=== PATIENT | female | born 1950 | race Caucasian/White ===

== ENCOUNTER 2019-10-28 17:14 | Emergency (ER) | payer MEDICARE, BC ==
[~2019-10-28] VITALS: Ht 165.1 cm; Wt 92.7 kg
[~2019-10-28 17:14] MED LIST: APIX5TAB3 PO; ATOR40TA PO; ATOR40TA71 PO; CHOL10002 PO; CHOL100046 PO; EMPA25TA PO; FURO-150 PO; METF500T PO; METF500T20 PO; METO-395 PO; METO-539 PO; OXYC-150 PO; PANT-47 PO; PANT40TA4 PO; POTA10TA10 PO; POTA99TA21 PO
[2019-10-28] MEDS ORDERED: albuterol 2.5 MG/3 ML nebule NEB ONE (18:30)
[2019-10-28] MEDS ORDERED: PRED20TA PO (19:04)
[2019-10-28] MEDS ORDERED: AZIT250T83 PO (19:04)
[2019-10-28] MEDS ORDERED: ALBU8.5H8 INH (19:05)
[2019-10-28 19:21] VITALS: BP 101/53
== END 2019-10-28 19:42 | disposition home or self-care (01) ==
LOC: ER 17:15
DX: J18.9 Pneumonia, unspecified organism (principal); R42 Dizziness and giddiness; I48.91 Unspecified atrial fibrillation; Z90.49 Acquired absence of other specified parts of digestive tract; Z87.891 Personal history of nicotine dependence; Z95.5 Presence of coronary angioplasty implant and graft; Z88.8 Allergy status to other drugs, medicaments and biological substances; Z79.01 Long term (current) use of anticoagulants; Z79.899 Other long term (current) drug therapy
CPT/HCPCS: 71045; 94640; 94760; 99283

== ENCOUNTER 2020-03-15 20:27 | Emergency (ER) | payer MEDICARE, BC ==
[~2020-03-15] VITALS: Ht 165.1 cm; Wt 90.0 kg
[~2020-03-15 20:27] MED LIST changes: +ALBU8.5H8 INH; +METF-900 PO; -METF500T20 PO
[2020-03-15] MEDS ORDERED: SYN0.088T PO (20:53)
[2020-03-15] MEDS ORDERED: DULA0.75 (20:53)
[2020-03-15] MEDS ORDERED: ENAL10TA78 PO (20:53)
[2020-03-15 20:58] LABS: BASOPHILS # (AUTO) 0.1 X10'3 (0-0.2); BASOPHILS % (AUTO) 0.9 % (0-1); EOSINOPHILS # (AUTO) 0.1 X10'3 (0-0.9); HEMATOCRIT 42.8 % (35.0-45.0); HEMOGLOBIN 14.2 g/dl (12.0-16.0); LYMPHOCYTES # (AUTO) 1.4 X10'3 (1.1-4.8); LYMPHOCYTES % (AUTO) 19.8 % (21-51); MEAN CORPUSCULAR HEMOGLOBIN 29.9 PG (27.0-31.0); MEAN CORPUSCULAR HGB CONC 33.3 g/dL (33.0-36.5); MEAN CORPUSCULAR VOLUME 89.8 FL (78-98); MEAN PLATELET VOLUME 7.8 FL (7.4-10.4); MONOCYTES # (AUTO) 0.7 X10'3 (0-0.9); MONOCYTES % (AUTO) 9.3 % (2-12); NEUTROPHILS # (AUTO) 4.9 X10'3 (1.8-7.7); PLATELET COUNT 237 X10'3 (140-440); RED BLOOD COUNT 4.76 X10'6 (4.20-5.60); RED CELL DISTRIBUTION WIDTH 13.8 % (11.5-14.5); WHITE BLOOD COUNT 7.1 X10'3 (4.5-11.0)
[2020-03-15 21:12] LABS: ALANINE AMINOTRANSFERASE 30 U/L (12-78); ALBUMIN 3.3 G/DL (3.4-5.0); ALBUMIN/GLOBULIN RATIO 0.9 (1.1-1.5); ALKALINE PHOSPHATASE 78 IU/L (46-116); ANION GAP 10 (8-16); ASPARTATE AMINO TRANSFERASE 23 U/L (10-37); BILIRUBIN,TOTAL 0.5 MG/DL (0.1-1.0); BLOOD UREA NITROGEN 20 MG/DL (7-18); BUN/CREATININE RATIO 16.1 (6.6-38.0); CHLORIDE 102 MMOL/L (99-107); CREATININE 1.24 MG/DL (0.40-0.90); GLUCOSE 255 MG/DL (70-104); POTASSIUM 3.6 MMOL/L (3.5-5.1); SODIUM 138 MMOL/L (135-145); TOTAL CARBON DIOXIDE 26.5 MMOL/L (24-32); TOTAL PROTEIN 7.1 G/DL (6.4-8.2); eGFR 43 ML/MIN
[2020-03-15 22:05] VITALS: BP 107/55
[2020-03-15] MEDS ORDERED: normal saline 1000ML IV soln IVB ONE (22:05)
[2020-03-15] MEDS ORDERED: iohexol 350MG/ML 100ml bottle IV ONE (22:49)
== END 2020-03-16 00:29 | disposition home or self-care (01) ==
LOC: ER 20:28
DX: R07.89 Other chest pain (principal); I48.91 Unspecified atrial fibrillation; I11.0 Hypertensive heart disease with heart failure; I50.9 Heart failure, unspecified; E78.00 Pure hypercholesterolemia, unspecified; E11.9 Type 2 diabetes mellitus without complications; F12.90 Cannabis use, unspecified, uncomplicated; Z90.49 Acquired absence of other specified parts of digestive tract; Z95.5 Presence of coronary angioplasty implant and graft; Z87.01 Personal history of pneumonia (recurrent); Z79.899 Other long term (current) drug therapy; Z88.5 Allergy status to narcotic agent
CPT/HCPCS: 36415; 71045; 71275; 80053; 84484; 85025; 93005; 99285; J7030; Q9967

== ENCOUNTER 2020-04-15 12:21 | Emergency (ER) | payer MEDICARE, BC ==
[~2020-04-15] VITALS: Ht 165.1 cm; Wt 88.6 kg
[~2020-04-15 12:21] MED LIST changes: -ALBU8.5H8 INH; -ATOR40TA PO; -CHOL100046 PO; +DULA0.75; +ENAL10TA78 PO; -METF-900 PO; -METF500T PO; -METO-539 PO; -OXYC-150 PO; -PANT-47 PO; -PANT40TA4 PO; -POTA10TA10 PO; -POTA99TA21 PO; +SYN0.088T PO
[2020-04-15] MEDS ORDERED: HYDROcodone/acetaminophen 10/325mg tab PO ONE (15:50)
[2020-04-15] MEDS ORDERED: HYDR-3965 PO (16:13)
[2020-04-15 16:59] VITALS: BP 114/97
== END 2020-04-15 16:30 | disposition home or self-care (01) ==
LOC: ER 12:22
DX: S22.31XA Fracture of one rib, right side, initial encounter for closed fracture (principal); I48.91 Unspecified atrial fibrillation; I50.9 Heart failure, unspecified; E78.00 Pure hypercholesterolemia, unspecified; I11.0 Hypertensive heart disease with heart failure; E11.9 Type 2 diabetes mellitus without complications; Z90.49 Acquired absence of other specified parts of digestive tract; F12.90 Cannabis use, unspecified, uncomplicated; Z88.8 Allergy status to other drugs, medicaments and biological substances; Z79.01 Long term (current) use of anticoagulants; Z79.899 Other long term (current) drug therapy; X58.XXXA Exposure to other specified factors, initial encounter; Y93.89 Activity, other specified; Y92.89 Other specified places as the place of occurrence of the external cause; Y99.8 Other external cause status
CPT/HCPCS: 71101; 99284

== ENCOUNTER 2020-08-24 11:20 | Emergency (ER) | payer MEDICARE, BC ==
[~2020-08-24] VITALS: Ht 170.2 cm; Wt 80.0 kg
== END 2020-08-24 14:43 | disposition left against medical advice (07) ==
LOC: ER 11:21
DX: R05 Cough (principal); I48.91 Unspecified atrial fibrillation; I11.0 Hypertensive heart disease with heart failure; I50.9 Heart failure, unspecified; E78.00 Pure hypercholesterolemia, unspecified; E11.9 Type 2 diabetes mellitus without complications; F12.90 Cannabis use, unspecified, uncomplicated; Z53.21 Procedure and treatment not carried out due to patient leaving prior to being seen by health care provider; Z87.01 Personal history of pneumonia (recurrent); Z90.49 Acquired absence of other specified parts of digestive tract; Z88.8 Allergy status to other drugs, medicaments and biological substances; Z79.899 Other long term (current) drug therapy

== ENCOUNTER 2021-10-12 17:14 | Emergency (ER) | payer MEDICARE, BC ==
[~2021-10-12] VITALS: Ht 165.1 cm; Wt 98.2 kg
[2021-10-12 18:28] LABS: BASOPHILS % (AUTO) 0.6 % (0-1); EOSINOPHILS # (AUTO) 0.1 X10'3 (0-0.9); EOSINOPHILS % (AUTO) 1.1 % (0-6); HEMATOCRIT 39.2 % (35.0-45.0); HEMOGLOBIN 13.1 g/dl (12.0-16.0); LYMPHOCYTES # (AUTO) 1.3 X10'3 (1.1-4.8); LYMPHOCYTES % (AUTO) 22.1 % (21-51); MEAN CORPUSCULAR HEMOGLOBIN 30.8 PG (27.0-31.0); MEAN CORPUSCULAR HGB CONC 33.5 g/dL (33.0-36.5); MEAN PLATELET VOLUME 8.1 FL (7.4-10.4); MONOCYTES # (AUTO) 0.4 X10'3 (0-0.9); MONOCYTES % (AUTO) 6.8 % (2-12); NEUTROPHILS # (AUTO) 4.1 X10'3 (1.8-7.7); NEUTROPHILS % (AUTO) 69.4 % (42-75); PLATELET COUNT 245 X10'3 (140-440); RED BLOOD COUNT 4.26 X10'6 (4.20-5.60); RED CELL DISTRIBUTION WIDTH 14.4 % (11.5-14.5)
[2021-10-12] MEDS ORDERED: normal saline 1000ml 1,000 ML IV ONE (18:30)
[2021-10-12 18:50] LABS: ALANINE AMINOTRANSFERASE 44 U/L (12-78); ALBUMIN 3.9 G/DL (3.4-5.0); ALBUMIN/GLOBULIN RATIO 1.1 (1.1-1.5); ALKALINE PHOSPHATASE 75 IU/L (46-116); ANION GAP 9 (8-16); ASPARTATE AMINO TRANSFERASE 41 U/L (10-37); BILIRUBIN,TOTAL 0.5 MG/DL (0.1-1.0); BLOOD UREA NITROGEN 22 MG/DL (7-18); BUN/CREATININE RATIO 18.3 (6.6-38.0); CHLORIDE 96 MMOL/L (99-107); GLUCOSE 447 MG/DL (70-104); MAGNESIUM 2.1 MG/DL (1.5-2.4); PHOSPHORUS 2.3 MG/DL (2.3-4.5); POTASSIUM 4.5 MMOL/L (3.5-5.1); SODIUM 133 MMOL/L (135-145); TOTAL CARBON DIOXIDE 28.4 MMOL/L (24-32); TOTAL PROTEIN 7.3 G/DL (6.4-8.2); eGFR 45 ML/MIN
[2021-10-12 19:24] LABS: CLARITY,URINE SLIGHTLY CLOUDY (Clear); COLOR,URINE YELLOW (Yellow); GLUCOSE, URINE >=1000 mg/dl (Neg); KETONES,URINE NEGATIVE (Neg); LEUKOCYTE ESTERASE ,URINE NEGATIVE (Neg); NITRITES, URINE NEGATIVE (Neg); OCCULT BLOOD,URINE SMALL (Neg); PROTEIN,URINE NEGATIVE (Neg); UROBILINOGEN,URINE 0.2 E.U/dL (0.2-1.0)
[2021-10-12 19:27] LABS: UA COLLECTION TYPE CLN CATCH MIDSTREAM
[2021-10-12 19:31] LABS: BACTERIA,URINE 2+ /HPF (Neg); MUCUS STRANDS FEW /LPF (Neg); RBC,URINE 0-2 /HPF (0-2); SQUAMOUS EPITHELIAL CELL,UR FEW /LPF (FEW)
[2021-10-12] MEDS ORDERED: normal saline 1000ML IV soln IV ONE (21:20)
[2021-10-12] MEDS ORDERED: insulin regular, human U-100 3ml vial - multi-dose IV ONE (21:20)
[2021-10-12] MEDS ORDERED: insulin glargine (Lantus) pen - multi-dose SQ ONE (22:05)
[2021-10-12] MEDS ORDERED: LANTUS SQ (22:25)
[2021-10-12 23:07] VITALS: BP 141/80
--- NOTE | 2021-10-16 10:22 | NUR ---
Patient called back and would like RX to be [facility] [place] [facility]. [facility] so I called in a prescription via voicemail. Patient is to be placed on bactrim DS 1 tab PO BID x7 days disp [address] Jacky Lindo
== END 2021-10-13 00:09 | disposition home or self-care (01) ==
LOC: ER 17:15
DX: E11.65 Type 2 diabetes mellitus with hyperglycemia (principal); I48.91 Unspecified atrial fibrillation; I11.0 Hypertensive heart disease with heart failure; I50.9 Heart failure, unspecified; E78.00 Pure hypercholesterolemia, unspecified; F12.90 Cannabis use, unspecified, uncomplicated; Z87.01 Personal history of pneumonia (recurrent); Z90.49 Acquired absence of other specified parts of digestive tract; Z79.4 Long term (current) use of insulin; Z88.8 Allergy status to other drugs, medicaments and biological substances; Z79.899 Other long term (current) drug therapy
CPT/HCPCS: 36415; 80053; 81001; 82948; 83605; 83735; 84100; 84145; 85025; 87040; 87077; 87088; 87186; 93005; 96361; 96374; 99284; J1815; J7030

== ENCOUNTER 2022-01-18 06:05 | Inpatient (IN) | payer MEDICARE, BC ==
[2022-01-12 15:33] LABS: CLARITY,URINE CLEAR (Clear); COLOR,URINE YELLOW (Yellow); GLUCOSE, URINE >=1000 mg/dl (Neg); KETONES,URINE NEGATIVE (Neg); LEUKOCYTE ESTERASE ,URINE NEGATIVE (Neg); NITRITES, URINE POSITIVE (Neg); OCCULT BLOOD,URINE NEGATIVE (Neg); PH,URINE 5.5 (4.8-8.0); PROTEIN,URINE 30 mg/dl (Neg); UROBILINOGEN,URINE 0.2 E.U/dL (0.2-1.0)
[2022-01-12 15:34] LABS: BASOPHILS # (AUTO) 0.1 X10'3 (0-0.2); BASOPHILS % (AUTO) 0.8 % (0-1); EOSINOPHILS # (AUTO) 0.1 X10'3 (0-0.9); EOSINOPHILS % (AUTO) 1.4 % (0-6); LYMPHOCYTES # (AUTO) 1.6 X10'3 (1.1-4.8); LYMPHOCYTES % (AUTO) 22.4 % (21-51); MEAN CORPUSCULAR HEMOGLOBIN 27.9 PG (27.0-31.0); MEAN CORPUSCULAR HGB CONC 33.1 g/dL (33.0-36.5); MEAN CORPUSCULAR VOLUME 84.3 FL (78-98); MEAN PLATELET VOLUME 8.2 FL (7.4-10.4); MONOCYTES # (AUTO) 0.6 X10'3 (0-0.9); MONOCYTES % (AUTO) 8.9 % (2-12); NEUTROPHILS # (AUTO) 4.7 X10'3 (1.8-7.7); NEUTROPHILS % (AUTO) 66.5 % (42-75); PRE OP HEMATOCRIT 40.7 % (35.0-45.0); PRE OP HEMOGLOBIN 13.5 g/dL (12.0-16.0); PRE OP PLATELET COUNT 285 X10'3 (140-440); RED BLOOD COUNT 4.84 X10'6 (4.20-5.60)
[2022-01-12 15:43] LABS: UA COLLECTION TYPE CLN CATCH MIDSTREAM
[2022-01-12 15:46] LABS: BACTERIA,URINE 4+ /HPF (Neg); MUCUS STRANDS NONE SEEN /LPF (Neg); RBC,URINE NONE SEEN /HPF (0-2); SQUAMOUS EPITHELIAL CELL,UR MODERATE /LPF (FEW); WBC CLUMPS,URINE MODERATE /HPF (NEGATIVE)
[2022-01-12 15:53] LABS: HEMOGLOBIN A1C 9.4 % (4.5-6.2)
[2022-01-12 16:00] LABS: ALBUMIN 3.2 G/DL (3.4-5.0); ALBUMIN/GLOBULIN RATIO 0.8 (1.1-1.5); ALKALINE PHOSPHATASE 74 IU/L (46-116); BLOOD UREA NITROGEN 21 MG/DL (7-18); BUN/CREATININE RATIO 25.6 (6.6-38.0); CALCIUM 9.7 MG/DL (8.5-10.1); CHLORIDE 104 MMOL/L (99-107); CREATININE 0.82 MG/DL (0.40-0.90); PRE OP ALT 27 U/L (30-65); PRE OP ANION GAP 9 (8-16); PRE OP AST 22 U/L (10-37); PRE OP BILIRUB, TOTAL 0.4 MG/DL (0.0-1.0); PRE OP POTASSIUM 3.9 MMOL/L (3.4-5.1); PRE OP SODIUM 139 MMOL/L (135-145); TOTAL CARBON DIOXIDE 26.3 MMOL/L (24-32); eGFR 69 ML/MIN
[2022-01-12 16:02] LABS: PRE OP GLUCOSE 218 MG/DL (70-104)
[~2022-01-18] VITALS: Ht 165.1 cm; Wt 106.2 kg
[2022-01-18] VITALS (31 sets, daily range): BP systolic 91–159; BP diastolic 51–88
[~2022-01-18 06:05] MED LIST changes: +DOCUMENT DATE & TIME OF BETA-BLOCKER PO ONE; -DULA0.75; -EMPA25TA PO; -ENAL10TA78 PO; +INSU200I SQ; +LANTUS SQ; +LEVO75TA PO; +MAGN250T29 PO; +POTA-82 PO; +SITA100T11 PO; -SYN0.088T PO; +ceFAZolin inj. 2,000 MG in dextrose 5%-water 100 ML IV ONE; +famotidine 20mg tablet PO ONE
[2022-01-18] MEDS: ringers solution, lacted 1,000 ML IV SCH (07:37)
--- NOTE | 2022-01-18 07:38 | NUR ---
PT LAST DOSE OF METOPROLOL 01/17/22 AT 2100
--- NOTE | 2022-01-18 08:12 | NUR ---
NOTIFIED DR LAO OF BS 220. VERBAL ORDER FOR INSULIN 6 UNITS SQ NOW.
[2022-01-18] MEDS ORDERED: insulin regular, human 10 units/0.1 ml syringe SQ ONE ×3 (08:15→10:20)
[2022-01-18] MEDS ORDERED: insulin regular, human U-100 3ml vial - multi-dose IV ONE ×2 (09:50→10:15)
[2022-01-18] MEDS ORDERED: heparin 10,000 units/1 ML INJ ONE (09:53)
--- NOTE | 2022-01-18 10:00 | NUR ---
RECHECK BS 229. DR LAO AT BS, VERBAL ORDER FOR INSULIN 6 UNITS SQ AND INSULIN 6 UNITS IV. ORDER PLACED
[2022-01-18] MEDS ORDERED: LIDOcaine 1% (10mg/ml) 2ml vial ONE (10:07)
[2022-01-18] MEDS ORDERED: ceFAZolin 1000mg inj ONE (10:14)
[2022-01-18] MEDS ORDERED: sevoflurane 250ml liquid IH ONE (10:26)
--- NOTE | 2022-01-18 10:30 | NUR ---
RECIEVED INSULIN FROM [facility] BOTH DOSES GIVEN JUST PRIOR TO PT TAKEN TO SURG. INSULIN 6 UNITS SQ TO RIGHT ARM, AND INSULIN 6 UNITS IV.
[2022-01-18] MEDS ORDERED: midazolam 1 mg/ML 2ml injection ONE (10:38)
[2022-01-18] MEDS ORDERED: fentaNYL /PF 50mcg/ml 5ml ampule ONE (10:39)
[2022-01-18] MEDS ORDERED: rocuronium 10mg/ml inj IV ONE (11:27)
[2022-01-18] MEDS ORDERED: phenylephrine 10mg/ml inj. ONE (11:27)
[2022-01-18] MEDS ORDERED: LIDOcaine 1%/PF 5ML 10 MG/ML VIAL ONE (11:27)
[2022-01-18] MEDS ORDERED: propofol inj 20 ML IV ONE (11:27)
[2022-01-18] MEDS ORDERED: pneumococcal 23-VAL P-sac vacc 25 mcg/0.5ml vial IMVAC ONE (11:30)
[2022-01-18] MEDS ORDERED: morphine 4 MG/ML inj SYRINge IV PRN (11:55)
[2022-01-18] MEDS ORDERED: acetaminophen 1,000mg/100ml IV 100 ML IV PRN (11:55)
[2022-01-18] MEDS ORDERED: ringers solution, lacted 1,000 ML IV SCH (11:55)
[2022-01-18] MEDS ORDERED: ondansetron/PF 4mg/2ml inj IV PRN (11:55)
[2022-01-18] MEDS ORDERED: labetalol 20mg/4ml (5mg/ml) syringe IV PRN (11:55)
[2022-01-18] MEDS ORDERED: morphine 2 MG/ML inj. syringe IV PRN (11:55)
[2022-01-18] MEDS ORDERED: hydrALAZINE 20mg/ml inj. IV PRN (11:55)
[2022-01-18] MEDS ORDERED: proCHLORperazine 10 MG/2 ml inj IV PRN (11:55)
[2022-01-18] MEDS ORDERED: HYDROmorphone/PF 0.2 MG/ML SYRINGE IV PRN ×2 (11:55)
[2022-01-18] MEDS ORDERED: heparin 1,000unit/ml 10ml vial 10 ML ONE (12:14)
[2022-01-18] MEDS ORDERED: ondansetron/PF 4mg/2ml inj ONE (13:02)
[2022-01-18] MEDS ORDERED: dexamethasone sod phosphate 4mg/ml inj. ONE (13:02)
[2022-01-18] MEDS ORDERED: neostigmine methylsulfate 1 MG/ML 10ml vial ONE (13:08)
[2022-01-18] MEDS ORDERED: glycopyrrolate 0.2mg/ml inj ONE (13:08)
--- NOTE | 2022-01-18 13:31 | NUR ---
Received from OR via bed, accompanied by Anesthesiologist Darci and report given by Anesthesiolgist. pt with snoring respiration, chin tilted back with good results. [address] bilateral groins, bilateral pulses present palpable and marked.
[2022-01-18] MEDS ORDERED: MESSAGE TO PHARMACY PO ONE (15:20)
--- NOTE | 2022-01-18 15:50 | NUR ---
CALLED TO NURSING MANAGER GALLERY, NO BED ASSIGNMENT YET
--- NOTE | 2022-01-18 16:34 | NUR ---
PT HAS PASSED RECOVERY STAGE, NOW AWAITING BED PLACEMENT
--- NOTE | 2022-01-18 17:17 | NUR ---
REPORT CALLED SITA TOUSSAINT, LEFT RADIAL ARTERIAL LINE REMOVED WITHOUT HEMATOMA, PT PREPARED FOR TRANSPORT. SIGNIFICANT OTHER WAS NOT IN THE WAITING ROOM UPON TRANSPORT, PT CALLED HIM ON THE PHONE AND NOTIFIED HIM OF HER ROOM NUMBER
--- NOTE | 2022-01-18 18:05 | NUR ---
Patient in room PCU 3024. I have received report from Kevin and had the opportunity to ask questions and assume patient care.
--- NOTE | 2022-01-18 18:15 | NUR ---
Called Dr. Wolfe and received CC diet order and throat lozenge order for patient.
[2022-01-18] MEDS ORDERED: benzocaine/menthol oral lozeng 1 EACH BOX MM PRN (18:45)
[2022-01-18] MEDS ORDERED: insulin glargine (Lantus) pen - multi-dose SQ SCH (21:00)
[2022-01-18] MEDS ORDERED: INSULIN LISPRO 8 UNIT SQ SCH (21:00)
[2022-01-18] MEDS: insulin Lispro (HumaLOG) vial - multi-dose SQ SCH (21:30)
[2022-01-19] VITALS (7 sets, daily range): BP systolic 99–134; BP diastolic 45–64
[2022-01-19] MEDS: HYDROmorphone inj. 0.5 MG/0.5 ML DISP.SYRIN IV PRN ×5 (01:03→19:36)
--- NOTE | 2022-01-19 06:15 | NUR ---
Problems reprioritized. Patient report given, questions answered & plan of care reviewed with Pepper.
[2022-01-19] MEDS: insulin Lispro (HumaLOG) vial - multi-dose SQ SCH ×3 (09:34→21:48)
[2022-01-19] MEDS: cholecalciferol (vitamin D3) 1,000 unit (25mcg) tablet PO SCH (09:35)
[2022-01-19] MEDS: furosemide 20MG tablet PO SCH (09:35)
[2022-01-19] MEDS: levoTHYROXINE 75mcg tablet PO SCH (09:36)
[2022-01-19] MEDS: linagliptin 5mg tablet PO SCH (09:37)
[2022-01-19] MEDS: atorvastatin 20mg tablet PO SCH (09:38)
[2022-01-19] MEDS: metoprolol succinate 25mg (24-HOUR) SR. Tablet PO SCH (09:39)
[2022-01-19] MEDS: potassium chloride 10mEq ER tablet PO SCH (09:39)
[2022-01-19] MEDS: magnesium oxide 400mg tablet PO SCH (09:40)
[2022-01-19] MEDS: ringers solution, lacted 1,000 ML IV SCH (09:41)
[2022-01-19] MEDS ORDERED: pneumococcal 23-VAL P-sac vacc 25 mcg/0.5ml vial IMVAC ONE (11:30)
--- NOTE | 2022-01-19 13:21 | NUR ---
Noted pt with T2DM, current A1c 9.4%. Pt seen at bedside with roommate present for written and verbal DM education. Pt states her A1c was 14% a few months ago with BG levels in the 500s which is recently down to the 200s after starting insulin, however reports frustration stating she doesn't feel like she's getting good guidance for DM management by her current home physician and is hoping to see an liability analyst. RD validated feelings and discussed the improvement in her DM management based on reported improved A1c and BG levels. Recommend consult with SW for referrals. RD discussed appropriate CHO and food intake as patient states she previously was following a very restrictive diet that eliminated carbs and was roughly around 900 kcal/day. All of patient's questions were answered at this time. RD contact information provided and pt encouraged to reach out if needed. Pt states she dislikes the food though is documented with 75-100% PO intake of meals. Food preferences were obtained and d/w dietary, see below. Pt denies food allergies and states difficulty swallowing breakfast meat this morning. Pt declines BSS with ST though is agreeable extra gravy on meat BIDLD and requests no breakfast meat, d/w dietary. No documented BM in EMR though pt reports LBM 01/18. Will continue to follow. Recommendations: 1) Continue CHO controlled diet 2) [place] food preferences: Yogurt with fruit WB; peanut butter BIDBL; ice cream, iced tea x2, and salad x2 BIDLD; extra gravy on meat; no correia 3) Routine bowel care 4) Weekly scaled weights Addendum: 01/19/22 at [address] Amended: Links added.
[2022-01-19] MEDS ORDERED: glucagon, human recombinant 1mg kit SUBCUT PRN (15:00)
[2022-01-19] MEDS ORDERED: MESSAGE TO PHARMACY PO ONE (15:00)
[2022-01-19] MEDS ORDERED: insulin Lispro (HumaLOG) vial - multi-dose SQ SCH (15:00)
[2022-01-19] MEDS ORDERED: dextrose 50%-water 50ml dispensing syringe IV PRN ×2 (15:00)
[2022-01-19] MEDS ORDERED: DEXTROSE 15 GM of carb/4 tabs (each vial/BOTTLE has 4 tablets) PO PRN ×2 (15:00)
--- NOTE | 2022-01-19 18:41 | NUR ---
Patient in room PCU 3024. I have received report from TONI TOUSSAINT and had the opportunity to ask questions and assume patient care.
[2022-01-19] MEDS: apixaban 5mg tablet PO SCH (19:35)
[2022-01-19] MEDS ORDERED: insulin glargine (Lantus) pen - multi-dose SQ SCH ×3 (21:00)
[2022-01-20] MEDS: HYDROmorphone inj. 0.5 MG/0.5 ML DISP.SYRIN IV PRN ×3 (00:03→09:29)
[2022-01-20 02:00] VITALS: BP 115/62
[2022-01-20 06:00] VITALS: BP 117/67
--- NOTE | 2022-01-20 06:44 | NUR ---
Problems reprioritized. Patient report given, questions answered & plan of care reviewed with MARIANNE TOUSSAINT.
--- NOTE | 2022-01-20 06:45 | NUR ---
Patient in room PCU 3024. I have received report from Liz TOUSSAINT and had the opportunity to ask questions and assume patient care.
[2022-01-20] MEDS: potassium chloride 10mEq ER tablet PO SCH (07:54)
[2022-01-20] MEDS: atorvastatin 20mg tablet PO SCH (07:54)
[2022-01-20] MEDS: cholecalciferol (vitamin D3) 1,000 unit (25mcg) tablet PO SCH (07:54)
[2022-01-20] MEDS: linagliptin 5mg tablet PO SCH (07:55)
[2022-01-20] MEDS: magnesium oxide 400mg tablet PO SCH (07:55)
[2022-01-20] MEDS: furosemide 20MG tablet PO SCH (07:55)
[2022-01-20] MEDS: levoTHYROXINE 75mcg tablet PO SCH (07:55)
[2022-01-20] MEDS: metoprolol succinate 25mg (24-HOUR) SR. Tablet PO SCH (07:55)
[2022-01-20] MEDS: apixaban 5mg tablet PO SCH (07:56)
[2022-01-20] MEDS: insulin Lispro (HumaLOG) vial - multi-dose SQ SCH ×2 (09:24→13:00)
[2022-01-20] MEDS ORDERED: ciprofloxacin 250mg tablet PO ONE (10:25)
[2022-01-20 11:00] VITALS: BP 125/87
[2022-01-20] MEDS ORDERED: LANTUS SQ (11:21)
[2022-01-20] MEDS ORDERED: CIPR-202 PO (11:21)
--- NOTE | 2022-01-30 09:49 | NUR ---
Case Management DC follow up:Spoke with Patient via telephone.S/P: Patient reports:.Denies Acute/continuous chest pain, emergent SOB, syncope episodes, severe headache,blurry vision,signs or symptoms,of stroke/BE FAST,unexplained bruising,bleeding, fever,chills.Verbalizes dressing on left groin has some drainage; [facility] health Nurse has been out to change dressing.Verbalizes understanding of s/s that warrant 9-11/ER visit further evaluation.Verbalizes understanding of new Rx:,why prescribed; continues/resumes current Rx as ordered.Verbalizes compliance with aftercare.Verbalizes she has scheduled appointments with Dr. Wolfe 01/31/22, and with Estela MOLINA 02/06/22. Verbalizes the staff did a good job, no complaint.Needs met,questions/concerns addressed at DC. No further questions/concerns regarding recent hospital stay, and/or DC status at this time.
== END 2022-01-20 14:16 | disposition home health service (06) | DRG 253 ==
LOC: PAS IN 06:05 → PCU 3S 17:32
PROVIDERS: ADMIT Surgery; ATTEND Surgery
PROC: 041L0JH Bypass Left Femoral Artery to Right Femoral Artery with Synthetic Substitute, Open Approach (ICD-10-PCS; principal; 2022-01-18 10:26)
PROC: 3E0234Z Introduction of Serum, Toxoid and Vaccine into Muscle, Percutaneous Approach (ICD-10-PCS; 2022-01-19)
DX: E11.51 Type 2 diabetes mellitus with diabetic peripheral angiopathy without gangrene (principal); N39.0 Urinary tract infection, site not specified; I13.0 Hypertensive heart and chronic kidney disease with heart failure and stage 1 through stage 4 chronic kidney disease, or unspecified chronic kidney disease; I48.91 Unspecified atrial fibrillation; E11.22 Type 2 diabetes mellitus with diabetic chronic kidney disease; N18.30 Chronic kidney disease, stage 3 unspecified; E03.9 Hypothyroidism, unspecified; E11.65 Type 2 diabetes mellitus with hyperglycemia; E78.5 Hyperlipidemia, unspecified; B96.20 Unspecified Escherichia coli [E. coli] as the cause of diseases classified elsewhere; G47.10 Hypersomnia, unspecified; M19.90 Unspecified osteoarthritis, unspecified site; J44.9 Chronic obstructive pulmonary disease, unspecified; I35.9 Nonrheumatic aortic valve disorder, unspecified; I50.9 Heart failure, unspecified; I99.8 Other disorder of circulatory system; Z79.01 Long term (current) use of anticoagulants; Z79.4 Long term (current) use of insulin; Z87.891 Personal history of nicotine dependence; Z90.710 Acquired absence of both cervix and uterus; Z23 Encounter for immunization; Z90.49 Acquired absence of other specified parts of digestive tract; Z88.5 Allergy status to narcotic agent; Z79.899 Other long term (current) drug therapy
CPT/HCPCS: 36415; 80053; 81001; 82948; 83036; 84443; 85025; 86885; 86900; 86901; 87077; 87081; 87088; 87186; 90732; 97116; 97161; 97530; A4618; A7000; C1758; C1768; G0378; J0690; J1100; J1170; J1644; J1815; J2250; J2370; J2405; J2704; J2710; J3010; J3490; J7040; J7060; J7120

== ENCOUNTER 2024-02-28 09:31 | Emergency (ER) | payer MEDICARE, BC ==
[~2024-02-28] VITALS: Ht 165.1 cm; Wt 95.2 kg
[~2024-02-28 09:31] MED LIST changes: -DOCUMENT DATE & TIME OF BETA-BLOCKER PO ONE; +POTA-366 PO; -POTA-82 PO; -ceFAZolin inj. 2,000 MG in dextrose 5%-water 100 ML IV ONE; -famotidine 20mg tablet PO ONE
[2024-02-28 10:09] LABS: BASOPHILS % (AUTO) 0.6 % (0-1); EOSINOPHILS # (AUTO) 0.1 X10'3 (0-0.9); EOSINOPHILS % (AUTO) 1.8 % (0-6); HEMATOCRIT 41.6 % (35.0-45.0); HEMOGLOBIN 13.9 g/dl (12.0-16.0); LYMPHOCYTES # (AUTO) 1.4 X10'3 (1.1-4.8); LYMPHOCYTES % (AUTO) 18.4 % (21-51); MEAN CORPUSCULAR HEMOGLOBIN 28.9 PG (27.0-31.0); MEAN CORPUSCULAR HGB CONC 33.4 g/dL (33.0-36.5); MEAN CORPUSCULAR VOLUME 86.3 FL (78-98); MEAN PLATELET VOLUME 7.4 FL (7.4-10.4); MONOCYTES # (AUTO) 0.7 X10'3 (0-0.9); MONOCYTES % (AUTO) 9.3 % (2-12); NEUTROPHILS # (AUTO) 5.4 X10'3 (1.8-7.7); NEUTROPHILS % (AUTO) 69.9 % (42-75); PLATELET COUNT 250 X10'3 (140-440); RED BLOOD COUNT 4.81 X10'6 (4.20-5.60); RED CELL DISTRIBUTION WIDTH 15.9 % (11.5-14.5); WHITE BLOOD COUNT 7.7 X10'3 (4.5-11.0)
[2024-02-28 10:18] LABS: ALANINE AMINOTRANSFERASE 32 U/L (12-78); ALBUMIN 3.2 G/DL (3.4-5.0); ALBUMIN/GLOBULIN RATIO 0.8 (1.1-1.5); ALKALINE PHOSPHATASE 94 IU/L (46-116); ANION GAP 7 (8-16); ASPARTATE AMINO TRANSFERASE 30 U/L (10-37); BILIRUBIN,TOTAL 0.7 MG/DL (0.1-1.0); BLOOD UREA NITROGEN 24 MG/DL (7-18); CALCIUM 9.7 MG/DL (8.5-10.1); CHLORIDE 106 MMOL/L (99-107); GLUCOSE 160 MG/DL (70-104); POTASSIUM 4.7 MMOL/L (3.5-5.1); SODIUM 143 MMOL/L (135-145); TOTAL CARBON DIOXIDE 30.3 MMOL/L (24-32); TOTAL PROTEIN 7.2 G/DL (6.4-8.2); eCRCL 38 ML/MIN; eGFR 44 ML/MIN
[2024-02-28 10:27] LABS: PRO BRAIN NATRIURETIC PEPTIDE 1544 PG/ML (0-125)
[2024-02-28] MEDS: HYDROcodone/acetaminophen 10/325mg tab PO ONE (13:55)
[2024-02-28] MEDS ORDERED: ATOR40TA72 PO (14:22)
[2024-02-28] MEDS ORDERED: ALBU2.5V10 (14:22)
[2024-02-28] MEDS ORDERED: LEVO75TA PO (15:40)
[2024-02-28] MEDS ORDERED: POTA-366 PO (15:40)
[2024-02-28] MEDS ORDERED: FURO-150 PO (15:40)
[2024-02-28] MEDS ORDERED: INSU200I SQ (15:40)
[2024-02-28] MEDS ORDERED: METO-395 PO (15:40)
[2024-02-28] MEDS ORDERED: ATOR40TA71 PO (15:40)
[2024-02-28] MEDS ORDERED: CHOL10002 PO (15:40)
[2024-02-28] MEDS ORDERED: SITA100T11 PO (15:40)
[2024-02-28] MEDS ORDERED: MAGN250T29 PO (15:40)
[2024-02-28] MEDS ORDERED: HYDR-3973 PO (16:48)
[2024-02-28 17:05] VITALS: BP 128/72; PULSE 88; RESP 16; TEMP 98.4; O2SAT 96
== END 2024-02-28 17:08 | disposition home or self-care (01) ==
LOC: ER 09:32
DX: R07.89 Other chest pain (principal); I48.91 Unspecified atrial fibrillation; I11.0 Hypertensive heart disease with heart failure; I50.9 Heart failure, unspecified; E78.00 Pure hypercholesterolemia, unspecified; E11.9 Type 2 diabetes mellitus without complications; F12.90 Cannabis use, unspecified, uncomplicated; Z90.49 Acquired absence of other specified parts of digestive tract; Z98.890 Other specified postprocedural states; Z88.8 Allergy status to other drugs, medicaments and biological substances; Z79.899 Other long term (current) drug therapy; Z79.4 Long term (current) use of insulin
CPT/HCPCS: 36415; 71045; 71250; 80053; 83880; 84484; 85025; 93005; 99285